=== PATIENT | female | born 1955 | race Caucasian/White ===

== ENCOUNTER 2021-06-05 10:20 | Inpatient (IN) | payer BC ==
[2021-06-05 11:37] LABS: #Eosinphils 0.2 thou/uL (0.0-0.7); #Lymphocytes 0.9 thou/uL (1.20-3.40); #Monocytes 0.5 thou/uL (0.11-0.59); #Neutrophils 5.7 thou/uL (1.40-6.50); %Basophils 0.2 % (0.0-1.0); %Eosinophils 3.4 % (0.0-10.0); %Monocytes 6.3 % (0.0-10.0); %Neutrophils 78.1 % (42.0-75.0); Hemoglobin 10.3 g/dL (12.0-16.0); Mean Corpuscular Hemoglobin 29.8 pg (27.0-31.0); Mean Corpuscular Volume 85.1 fL (78.0-98.0); Mean Platelet Volume 8.4 fL (7.4-10.4); Platelet Count 143 thou/uL (130-400); RBC Distribution Width 13.2 % (11.5-14.5); Red Blood Cell (RBC) Count 3.44 mill/uL (4.20-5.40); White Blood Cell (WBC) Count 7.3 thou/uL (4.8-10.8)
[2021-06-05 11:57] LABS: ALT (SGPT) 15 U/L (8-55); AST (SGOT) 20 U/L (5-34); Albumin 3.6 g/dL (3.4-4.8); Alkaline Phosphatase 61 U/L (40-110); Anion Gap 16 mmol/L (10-20); BUN (Urea Nitrogen) 78 mg/dL (9.8-20.1); Bilirubin, Total 0.4 mg/dL (0.2-1.2); Calc. Creatinine Clearance 0 mL/min (70-130); Calcium 9.6 mg/dL (7.8-10.44); Carbon Dioxide 29 mmol/L (23-31); Chloride 81 mmol/L (98-107); Globulin 2.5 g/dL (2.4-3.5); Glucose 236 mg/dL (80-115); Protein, Total 6.1 g/dL (5.8-8.1); Sodium 123 mmol/L (136-145)
[2021-06-05 12:19] LABS: CKMB 2.8 ng/mL (0-6.6)
[2021-06-05 13:24] LABS: SARS-CoV-2 NAA Rapid Test Not Detected (NotDetected)
[2021-06-05] MEDS ORDERED: Ondansetron PF 4 MG/2 ML Vial ONE (13:56)
[2021-06-05 14:33] LABS: Bacteria/HPF None Seen HPF (None Seen); Bilirubin Negative (Negative); Blood, Urine 1+ (Negative); Clarity Clear (Clear); Glucose, Urine (Dipstick) 200 mg/dL (Negative); Ketone, Urine Negative (Negative); Leukocyte 25 Leu/uL (Negative); Nitrite Negative (Negative); Protein, Urine (Dipstick) 300 mg/dL (Neg-Trace); RBC/HPF 0-3 HPF (0-3); Specific Gravity, Urine 1.012 (1.002-1.036); Squamous Epithelial 0-3 HPF (0-3); Urobilinogen Normal mg/dL (Less than 2); pH, Urine 6.5 (5.0-9.0)
[2021-06-05] MEDS ORDERED: Sodium Chloride 0.9% 1,000 ML IV SCH (15:30)
[2021-06-05 15:38] VITALS: BMI 29.7
[2021-06-05] MEDS ORDERED: FLU VACC QS2021-22(65YR UP)/PF 240 MCG/0.7 ML SYRINGE IM ONE (16:00)
[2021-06-05 17:08] LABS: Magnesium 3.1 mg/dL (1.6-2.6); Phosphorus 6.2 mg/dL (2.3-4.7)
[2021-06-05] MEDS ORDERED: Ondansetron PF 4 MG/2 ML Vial IVP PRN (17:11)
[2021-06-05] MEDS ORDERED: Ondansetron ODT 4 MG TAB PO PRN (17:11)
[2021-06-05] MEDS ORDERED: Acetaminophen 325 MG TAB PO PRN (17:11)
[2021-06-05] MEDS ORDERED: Acetaminophen 650 MG Suppository PR PRN (17:11)
[2021-06-05 17:50] LABS: Sodium 123 mmol/L (136-145)
[2021-06-05] MEDS ORDERED: HumaLOG 300 UNITS/3 ML VIAL SC PRN ×2 (17:57)
[2021-06-05] MEDS ORDERED: Dextrose 50% Abboject 50 ML SYRINGE SLOW IVP PRN (17:57)
[2021-06-05] MEDS ORDERED: Dextrose 5% in Water 1,000 ML IV PRN (17:57)
[2021-06-05 18:00] LABS: Sodium 123 mmol/L (136-145)
[2021-06-05] MEDS ORDERED: Potassium Chloride 20 MEQ TAB PO SCH (18:00)
[2021-06-05 18:19] LABS: Potassium, Urine 38.9 mmol/L
[2021-06-05] MEDS: Sodium Chloride 0.9% 1,000 ML IV SCH (18:28)
[2021-06-05 18:52] LABS: CKMB 2.9 ng/mL (0-6.6)
[2021-06-05] MEDS: Morphine ER 15 MG TAB PO SCH (20:42)
[2021-06-05] MEDS: oxyCODONE 5 MG TAB PO PRN (20:43)
[2021-06-05 21:54] LABS: Sodium 124 mmol/L (136-145)
[2021-06-05 22:07] LABS: CKMB 2.5 ng/mL (0-6.6)
[2021-06-06] MEDS: oxyCODONE 5 MG TAB PO PRN ×4 (00:55→20:39)
[2021-06-06 05:08] LABS: #Eosinphils 0.2 thou/uL (0.0-0.7); #Lymphocytes 1.1 thou/uL (1.20-3.40); #Monocytes 0.5 thou/uL (0.11-0.59); #Neutrophils 3.9 thou/uL (1.40-6.50); %Basophils 0.4 % (0.0-1.0); %Eosinophils 4.1 % (0.0-10.0); %Monocytes 7.9 % (0.0-10.0); %Neutrophils 68.6 % (42.0-75.0); Hemoglobin 10.3 g/dL (12.0-16.0); Mean Corpuscular Volume 85.8 fL (78.0-98.0); Mean Platelet Volume 8.3 fL (7.4-10.4); Platelet Count 136 thou/uL (130-400); RBC Distribution Width 13.2 % (11.5-14.5); Red Blood Cell (RBC) Count 3.42 mill/uL (4.20-5.40); White Blood Cell (WBC) Count 5.7 thou/uL (4.8-10.8)
[2021-06-06 05:35] LABS: Anion Gap 15 mmol/L (10-20); BUN (Urea Nitrogen) 71 mg/dL (9.8-20.1); Calc. Creatinine Clearance 13 mL/min (70-130); Calcium 9.1 mg/dL (7.8-10.44); Carbon Dioxide 26 mmol/L (23-31); Chloride 87 mmol/L (98-107); Glucose 156 mg/dL (80-115); Potassium 3.3 mmol/L (3.5-5.1); Sodium 125 mmol/L (136-145)
[2021-06-06] MEDS ORDERED: Non-Formulary Item 1 EACH (Polyethylene Glycol 3350 [Miralax] 119 GM Bottle) PO PRN (07:58)
[2021-06-06] MEDS ORDERED: Docusate 100 MG CAP PO PRN (07:58)
[2021-06-06] MEDS ORDERED: Polyethylene Glycol 3350 17 GM Packet PO PRN (08:08)
[2021-06-06] MEDS ORDERED: Fluticasone/Umeclidin/Vilanter [Trelegy Ellipta 200-62.5-25] INH SCH (09:00)
[2021-06-06] MEDS ORDERED: Non-Formulary Item 1 EACH (Fluticasone/Umeclidin/Vilanter [Trelegy Ellipta 200-62.5-25] 1 INH SCH (09:00)
[2021-06-06 09:39] LABS: Sodium 128 mmol/L (136-145)
[2021-06-06] MEDS: predniSONE 5 MG TAB PO SCH (11:01)
[2021-06-06] MEDS: Morphine ER 15 MG TAB PO SCH ×2 (11:02→20:40)
[2021-06-06] MEDS: Lantus 1000 UNITS/10 ML VIAL SC SCH (13:22)
[2021-06-06 16:24] LABS: Sodium 124 mmol/L (136-145)
[2021-06-06] MEDS: Sodium Chloride 0.9% 1,000 ML IV SCH ×2 (19:30→23:30)
[2021-06-06] MEDS ORDERED: Sodium Chloride 0.65% Nasal 44 ML BOT EA NARE PRN (19:36)
[2021-06-06] MEDS: Tacrolimus 1 MG CAP PO SCH (20:40)
[2021-06-06] MEDS: Mycophenolate 250 MG CAP PO SCH (20:40)
[2021-06-06] MEDS ORDERED: ALPRAZolam 0.5 MG TAB PO SCH (21:30)
[2021-06-06 22:24] LABS: Sodium 126 mmol/L (136-145)
[2021-06-06] MEDS ORDERED: Amitriptyline HCl 10 MG TAB PO PRN (22:36)
[2021-06-06] MEDS ORDERED: Amitriptyline HCl 25 MG TAB PO PRN (22:38)
[2021-06-07 05:27] LABS: Anion Gap 15 mmol/L (10-20); BUN (Urea Nitrogen) 69 mg/dL (9.8-20.1); Calc. Creatinine Clearance 13 mL/min (70-130); Calcium 8.9 mg/dL (7.8-10.44); Carbon Dioxide 25 mmol/L (23-31); Chloride 89 mmol/L (98-107); Glucose 126 mg/dL (80-115); Potassium 3.1 mmol/L (3.5-5.1); Sodium 126 mmol/L (136-145)
[2021-06-07] MEDS ORDERED: Mometasone 100 MCG/PUFF (1 INHALER) INH SCH (06:30)
[2021-06-07 06:40] LABS: #Eosinphils 0.2 thou/uL (0.0-0.7); #Lymphocytes 1.2 thou/uL (1.20-3.40); #Monocytes 0.6 thou/uL (0.11-0.59); #Neutrophils 3.9 thou/uL (1.40-6.50); %Basophils 0.5 % (0.0-1.0); %Eosinophils 3.6 % (0.0-10.0); %Lymphocytes 20.3 % (21.0-51.0); %Monocytes 10.3 % (0.0-10.0); %Neutrophils 65.3 % (42.0-75.0); Hemoglobin 9.7 g/dL (12.0-16.0); Mean Corpuscular HGB CONC 34.4 g/dL (32.0-36.0); Mean Corpuscular Hemoglobin 29.8 pg (27.0-31.0); Mean Corpuscular Volume 86.6 fL (78.0-98.0); Mean Platelet Volume 8.6 fL (7.4-10.4); Platelet Count 116 thou/uL (130-400); Platelet Morphology Comment Appears Decreased; RBC Distribution Width 13.2 % (11.5-14.5); Red Blood Cell (RBC) Count 3.26 mill/uL (4.20-5.40); White Blood Cell (WBC) Count 5.9 thou/uL (4.8-10.8)
[2021-06-07] MEDS: Morphine ER 15 MG TAB PO SCH (08:29)
[2021-06-07] MEDS: Mycophenolate 250 MG CAP PO SCH (08:30)
[2021-06-07] MEDS: Tacrolimus 1 MG CAP PO SCH (08:30)
[2021-06-07] MEDS: predniSONE 5 MG TAB PO SCH (08:30)
[2021-06-07] MEDS: Lantus 1000 UNITS/10 ML VIAL SC SCH (08:36)
[2021-06-07 08:45] VITALS: BP 139/82; TEMP 97.9
[2021-06-07] MEDS: oxyCODONE 5 MG TAB PO PRN (09:08)
[2021-06-09 21:38] LABS: Tacrolimus 1.8 ng/mL (2.0-20.0)
== END 2021-06-07 11:50 | disposition home or self-care (01) | DRG 699 ==
LOC: ERS 10:20 → T4-B 15:29 → 2SW 19:48
PROVIDERS: ADMIT Hospitalist; ATTEND Family Medicine
DX: T86.19 Other complication of kidney transplant (principal); N17.9 Acute kidney failure, unspecified; Z20.822 Contact with and (suspected) exposure to COVID-19; I13.2 Hypertensive heart and chronic kidney disease with heart failure and with stage 5 chronic kidney disease, or end stage renal disease; E87.1 Hypo-osmolality and hyponatremia; N18.5 Chronic kidney disease, stage 5; C34.90 Malignant neoplasm of unspecified part of unspecified bronchus or lung; Y83.0 Surgical operation with transplant of whole organ as the cause of abnormal reaction of the patient, or of later complication, without mention of misadventure at the time of the procedure; E78.5 Hyperlipidemia, unspecified; E11.22 Type 2 diabetes mellitus with diabetic chronic kidney disease; I50.9 Heart failure, unspecified; E87.6 Hypokalemia; R79.89 Other specified abnormal findings of blood chemistry; I25.10 Atherosclerotic heart disease of native coronary artery without angina pectoris; G89.29 Other chronic pain; J44.9 Chronic obstructive pulmonary disease, unspecified; Z96.651 Presence of right artificial knee joint; D63.1 Anemia in chronic kidney disease; Z90.2 Acquired absence of lung [part of]; Z88.8 Allergy status to other drugs, medicaments and biological substances; Z79.82 Long term (current) use of aspirin; Z79.4 Long term (current) use of insulin; Z79.52 Long term (current) use of systemic steroids; Z79.899 Other long term (current) drug therapy; Z95.5 Presence of coronary angioplasty implant and graft; Z84.1 Family history of disorders of kidney and ureter
CPT/HCPCS: 0240U; 36415; 36416; 76770; 80048; 80053; 80197; 81003; 81015; 82436; 82553; 83735; 83930; 83935; 84100; 84133; 84295; 84300; 84484; 84540; 84560; 85025; 93005; 93306; 96374; J1815; J2405; J7050; J7507; J7512; J7517

== ENCOUNTER 2021-06-10 12:07 | Inpatient (IN) | payer BC ==
[2021-06-10 12:43] LABS: #Lymphocytes 0.4 thou/uL (1.20-3.40); #Monocytes 0.3 thou/uL (0.11-0.59); #Neutrophils 11.6 thou/uL (1.40-6.50); %Eosinophils 0.3 % (0.0-10.0); %Lymphocytes 3.4 % (21.0-51.0); %Monocytes 2.4 % (0.0-10.0); %Neutrophils 93.8 % (42.0-75.0); Hemoglobin 9.9 g/dL (12.0-16.0); Mean Corpuscular HGB CONC 35.3 g/dL (32.0-36.0); Mean Corpuscular Hemoglobin 29.9 pg (27.0-31.0); Mean Corpuscular Volume 84.5 fL (78.0-98.0); Mean Platelet Volume 7.6 fL (7.4-10.4); Platelet Count 160 thou/uL (130-400); RBC Distribution Width 13.4 % (11.5-14.5); White Blood Cell (WBC) Count 12.3 thou/uL (4.8-10.8)
[2021-06-10 12:50] LABS: Hemoglobin A1c 6.5 % (4.0-6.0)
[2021-06-10] MEDS ORDERED: CEFAZOLIN 2 GM, Admixture Fee 1 EACH in Sodium Chloride 0.9% 100 ML IVPB SCH (13:00)
[2021-06-10 13:03] LABS: ALT (SGPT) 14 U/L (8-55); AST (SGOT) 15 U/L (5-34); Albumin 3.8 g/dL (3.4-4.8); Alkaline Phosphatase 57 U/L (40-110); Anion Gap 16 mmol/L (10-20); BUN (Urea Nitrogen) 69 mg/dL (9.8-20.1); Bilirubin, Total 0.5 mg/dL (0.2-1.2); Calc. Creatinine Clearance 0 mL/min (70-130); Calcium 9.3 mg/dL (7.8-10.44); Carbon Dioxide 27 mmol/L (23-31); Chloride 85 mmol/L (98-107); Globulin 2.3 g/dL (2.4-3.5); Glucose 214 mg/dL (80-115); Potassium 3.6 mmol/L (3.5-5.1); Protein, Total 6.1 g/dL (5.8-8.1); Sodium 124 mmol/L (136-145)
[2021-06-10 14:43] LABS: Hep A IgM AB Non-Reactive (NonReactive); Hep A IgM S/CO 0.13 S/CO (0-0.79); Hep C IgG Ab Non-Reactive (NonReactive); Hep C Index 0.07 S/CO (0-0.79)
[2021-06-10 14:45] LABS: HBCM Index 0.05 S/CO (0-0.79); Hepatitis B Core IgM Abs Non-Reactive (NonReactive)
[2021-06-10] MEDS ORDERED: hydrALAZINE 20 MG/ML VIAL SLOW IVP PRN (15:40)
[2021-06-10] MEDS ORDERED: Acetaminophen 325 MG TAB PO PRN (15:40)
[2021-06-10] MEDS ORDERED: Dextrose 5% in Water 1,000 ML IV PRN (15:40)
[2021-06-10] MEDS ORDERED: HumaLOG 300 UNITS/3 ML VIAL SC PRN (15:40)
[2021-06-10] MEDS ORDERED: Dextrose 50% Abboject 50 ML SYRINGE SLOW IVP PRN (15:40)
[2021-06-10] MEDS ORDERED: Tuberculin PPD 0.1 ML VIAL I-DERMAL SCH (15:45)
[2021-06-10 16:01] LABS: HBSAg Index 0.29 S/CO (0-0.99); Hep B Surf Ag NonReactive S/CO (NonReactive)
[2021-06-10 17:09] LABS: HBSAB Concentration Less than 8.00 mIU/mL; HBSAg Index 0.24 S/CO (0-0.99); Hep B Core Total Ab Non-Reactive (NonReactive); Hep B Core Total Index 0.06 S/CO (0-0.79); Hep B Surf AB Non-Reactive (NonReactive); Hep B Surf Ag Non-Reactive S/CO (NonReactive); Hep C IgG Ab Non-Reactive (NonReactive); Hep C Index 0.06 S/CO (0-0.79)
[2021-06-10] MEDS: HumaLOG 300 UNITS/3 ML VIAL SC PRN (17:28)
[2021-06-10] MEDS ORDERED: Amitriptyline HCl 10 MG TAB PO PRN (17:44)
[2021-06-10] MEDS ORDERED: Polyethylene Glycol 3350 17 GM Packet PO PRN (18:14)
[2021-06-10] MEDS: oxyCODONE 5 MG TAB PO PRN (18:34)
[2021-06-10] MEDS ORDERED: Losartan 25 MG TAB PO SCH (21:00)
[2021-06-10] MEDS: Aspirin 81 mg Enteric Coated Tablet PO SCH (21:19)
[2021-06-10] MEDS: Tacrolimus 1 MG CAP PO SCH (21:19)
[2021-06-10] MEDS: ALPRAZolam 0.25 MG TAB PO SCH (21:20)
[2021-06-10] MEDS: Mycophenolate 250 MG CAP PO SCH (21:20)
[2021-06-10] MEDS: Docusate 100 MG CAP PO SCH (21:20)
[2021-06-10] MEDS: Morphine ER 15 MG TAB PO SCH (21:21)
[2021-06-10] MEDS: Heparin 5,000 UNITS/ML VIAL SC SCH (21:21)
[2021-06-11] MEDS: oxyCODONE 5 MG TAB PO PRN ×3 (00:08→18:01)
[2021-06-11 06:01] LABS: #Lymphocytes 0.8 thou/uL (1.20-3.40); #Monocytes 0.4 thou/uL (0.11-0.59); #Neutrophils 4.4 thou/uL (1.40-6.50); %Eosinophils 0.2 % (0.0-10.0); %Lymphocytes 14.9 % (21.0-51.0); %Monocytes 6.6 % (0.0-10.0); %Neutrophils 78.2 % (42.0-75.0); Hemoglobin 8.8 g/dL (12.0-16.0); Mean Corpuscular Hemoglobin 29.2 pg (27.0-31.0); Mean Corpuscular Volume 85.8 fL (78.0-98.0); Mean Platelet Volume 7.7 fL (7.4-10.4); Platelet Count 157 thou/uL (130-400); RBC Distribution Width 13.1 % (11.5-14.5); White Blood Cell (WBC) Count 5.6 thou/uL (4.8-10.8)
[2021-06-11 06:19] LABS: Anion Gap 14 mmol/L (10-20); BUN (Urea Nitrogen) 75 mg/dL (9.8-20.1); Calc. Creatinine Clearance 14 mL/min (70-130); Calcium 8.9 mg/dL (7.8-10.44); Carbon Dioxide 27 mmol/L (23-31); Chloride 85 mmol/L (98-107); Glucose 213 mg/dL (80-115); Magnesium 2.7 mg/dL (1.6-2.6); Phosphorus 5.7 mg/dL (2.3-4.7); Potassium 3.3 mmol/L (3.5-5.1); Sodium 123 mmol/L (136-145)
[2021-06-11 08:06] LABS: SARS-CoV-2 NAA Rapid Test Not Detected (NotDetected)
[2021-06-11] MEDS: Morphine ER 15 MG TAB PO SCH ×2 (09:31→22:55)
[2021-06-11] MEDS: Tacrolimus 1 MG CAP PO SCH ×2 (09:32→21:30)
[2021-06-11] MEDS: Mycophenolate 250 MG CAP PO SCH ×2 (09:32→21:30)
[2021-06-11] MEDS: ALPRAZolam 0.25 MG TAB PO SCH ×2 (09:32→22:56)
[2021-06-11] MEDS: Torsemide 100 MG TAB PO SCH (09:33)
[2021-06-11] MEDS: predniSONE 5 MG TAB PO SCH (09:36)
[2021-06-11] MEDS: Heparin 5,000 UNITS/ML VIAL SC SCH ×2 (09:41→21:30)
[2021-06-11] MEDS: Ezetimibe 10 MG TAB PO SCH (12:34)
[2021-06-11] MEDS ORDERED: Midazolam HCl 2 mg/2 ml Vial ONE (13:46)
[2021-06-11] MEDS ORDERED: Fentanyl 100 MCG/2 ML VIAL ONE ×3 (13:46→17:01)
[2021-06-11] MEDS ORDERED: Heparin 5,000 UNITS/ML VIAL ONE (13:52)
[2021-06-11] MEDS ORDERED: Lidocaine 1% w/Epinephrine 1:100K 20 ML VIAL ONE (13:52)
[2021-06-11] MEDS ORDERED: Protamine Sulfate 50 MG/5 ML VIAL ONE (13:52)
[2021-06-11] MEDS ORDERED: Sodium Chloride 0.9% 20 ML ONE (13:52)
[2021-06-11] MEDS ORDERED: Bupivacaine PF 0.5% 30 ML VIAL ONE (13:52)
[2021-06-11] MEDS ORDERED: Heparin 10,000 UNITS/ 10 ML VIAL ONE (13:52)
[2021-06-11] MEDS ORDERED: ceFAZolin Sodium (SDC) 2 GM/100 ML BAG ONE (14:22)
[2021-06-11] MEDS ORDERED: Phenylephrine 10 MG/ML VIAL ONE (14:46)
[2021-06-11] MEDS ORDERED: PROPOFOL 20 ML ONE (15:31)
[2021-06-11] MEDS ORDERED: Promethazine HCl 25 MG/ML VIAL IVPB PRN (16:40)
[2021-06-11] MEDS ORDERED: PACU-Morphine 4MG/ML VIAL SLOW IVP PRN (16:40)
[2021-06-11] MEDS ORDERED: Ondansetron HCl/PF 4 MG/2 ML Vial IVP PRN (16:40)
[2021-06-11] MEDS ORDERED: Promethazine HCl 25 MG/ML VIAL IM PRN (16:40)
[2021-06-11] MEDS ORDERED: Morphine 4 MG/ML VIAL ONE (17:11)
[2021-06-11] MEDS ORDERED: Ondansetron PF 4 MG/2 ML Vial IVP PRN (18:33)
[2021-06-11] MEDS ORDERED: Ondansetron ODT 4 MG TAB PO PRN (18:34)
[2021-06-11] MEDS: Aspirin 81 mg Enteric Coated Tablet PO SCH (21:30)
[2021-06-11] MEDS: Docusate 100 MG CAP PO SCH (21:30)
[2021-06-12] MEDS: oxyCODONE 5 MG TAB PO PRN ×3 (00:13→17:26)
[2021-06-12] MEDS: HumaLOG 300 UNITS/3 ML VIAL SC PRN (05:20)
[2021-06-12] MEDS: ALPRAZolam 0.25 MG TAB PO SCH (06:16)
[2021-06-12] MEDS: Torsemide 100 MG TAB PO SCH (09:05)
[2021-06-12] MEDS: predniSONE 5 MG TAB PO SCH (09:06)
[2021-06-12] MEDS: Morphine ER 15 MG TAB PO SCH (09:06)
[2021-06-12] MEDS: Tacrolimus 1 MG CAP PO SCH (09:06)
[2021-06-12] MEDS: Heparin 5,000 UNITS/ML VIAL SC SCH (09:07)
[2021-06-12] MEDS: Mycophenolate 250 MG CAP PO SCH (09:07)
[2021-06-12 10:16] LABS: Hemoglobin 8.9 g/dL (12.0-16.0)
[2021-06-12 10:36] LABS: Anion Gap 12 mmol/L (10-20); BUN (Urea Nitrogen) 55 mg/dL (9.8-20.1); Calc. Creatinine Clearance 19 mL/min (70-130); Calcium 8.2 mg/dL (7.8-10.44); Carbon Dioxide 30 mmol/L (23-31); Chloride 92 mmol/L (98-107); Glucose 152 mg/dL (80-115); Potassium 3.3 mmol/L (3.5-5.1); Sodium 131 mmol/L (136-145)
[2021-06-12] MEDS: Ezetimibe 10 MG TAB PO SCH (14:47)
[2021-06-12] MEDS ORDERED: READ PPD TEST SITE PO SCH (15:45)
[2021-06-12 17:30] VITALS: BP 90/67; TEMP 98.6
== END 2021-06-12 18:20 | disposition home or self-care (01) | DRG 673 ==
LOC: ERS 12:07 → T4-B 15:11
PROVIDERS: ADMIT Internal Medicine; ATTEND Hospitalist
PROC: 02HV33Z Insertion of Infusion Device into Superior Vena Cava, Percutaneous Approach (ICD-10-PCS; 2021-06-10)
PROC: 0JH63XZ Insertion of Tunneled Vascular Access Device into Chest Subcutaneous Tissue and Fascia, Percutaneous Approach (ICD-10-PCS; principal; 2021-06-11)
PROC: 031C0ZF Bypass Left Radial Artery to Lower Arm Vein, Open Approach (ICD-10-PCS; 2021-06-11)
PROC: 02HV33Z Insertion of Infusion Device into Superior Vena Cava, Percutaneous Approach (ICD-10-PCS; 2021-06-11)
PROC: B5181ZA Fluoroscopy of Superior Vena Cava using Low Osmolar Contrast, Guidance (ICD-10-PCS; 2021-06-11)
PROC: B548ZZA Ultrasonography of Superior Vena Cava, Guidance (ICD-10-PCS; 2021-06-11)
PROC: 5A1D70Z Performance of Urinary Filtration, Intermittent, Less than 6 Hours Per Day (ICD-10-PCS; 2021-06-11)
DX: T86.11 Kidney transplant rejection (principal); N18.6 End stage renal disease; I13.2 Hypertensive heart and chronic kidney disease with heart failure and with stage 5 chronic kidney disease, or end stage renal disease; E87.1 Hypo-osmolality and hyponatremia; Z20.822 Contact with and (suspected) exposure to COVID-19; Y83.8 Other surgical procedures as the cause of abnormal reaction of the patient, or of later complication, without mention of misadventure at the time of the procedure; I50.9 Heart failure, unspecified; D63.1 Anemia in chronic kidney disease; I25.10 Atherosclerotic heart disease of native coronary artery without angina pectoris; E11.22 Type 2 diabetes mellitus with diabetic chronic kidney disease; I87.8 Other specified disorders of veins; K43.2 Incisional hernia without obstruction or gangrene; E78.00 Pure hypercholesterolemia, unspecified; M19.90 Unspecified osteoarthritis, unspecified site; G89.4 Chronic pain syndrome; K59.00 Constipation, unspecified; Z96.651 Presence of right artificial knee joint; Z88.8 Allergy status to other drugs, medicaments and biological substances; Z79.82 Long term (current) use of aspirin; Z79.4 Long term (current) use of insulin; Z79.899 Other long term (current) drug therapy; Z79.891 Long term (current) use of opiate analgesic; Z79.52 Long term (current) use of systemic steroids; Z85.118 Personal history of other malignant neoplasm of bronchus and lung; Z90.2 Acquired absence of lung [part of]; Z90.710 Acquired absence of both cervix and uterus; Z90.722 Acquired absence of ovaries, bilateral
CPT/HCPCS: 36415; 36416; 36556; 71045; 80048; 80053; 80074; 83036; 83735; 84100; 85014; 85018; 85025; 86580; 86704; 86706; 86803; 87340; 93005; 93970; C1752; C1776; J0690; J1644; J1815; J2250; J2270; J2370; J2704; J2720; J3010; J7507; J7512; J7517; Q0162; S0020; U0002

== ENCOUNTER 2021-06-21 21:47 | Emergency (ER) | payer BC ==
[2021-06-21 23:31] LABS: #Eosinphils 0.2 thou/uL (0.0-0.7); #Lymphocytes 0.8 thou/uL (1.20-3.40); #Monocytes 0.5 thou/uL (0.11-0.59); #Neutrophils 6.3 thou/uL (1.40-6.50); %Basophils 0.3 % (0.0-1.0); %Lymphocytes 10.2 % (21.0-51.0); %Monocytes 5.9 % (0.0-10.0); %Neutrophils 80.7 % (42.0-75.0); Hemoglobin 8.5 g/dL (12.0-16.0); Mean Corpuscular HGB CONC 34.1 g/dL (32.0-36.0); Mean Corpuscular Hemoglobin 30.5 pg (27.0-31.0); Mean Corpuscular Volume 89.5 fL (78.0-98.0); Mean Platelet Volume 7.8 fL (7.4-10.4); Platelet Count 134 thou/uL (130-400); RBC Distribution Width 13.5 % (11.5-14.5); Red Blood Cell (RBC) Count 2.77 mill/uL (4.20-5.40); White Blood Cell (WBC) Count 7.8 thou/uL (4.8-10.8)
[2021-06-21 23:51] LABS: ALT (SGPT) 15 U/L (8-55); AST (SGOT) 23 U/L (5-34); Albumin 3.4 g/dL (3.4-4.8); Alkaline Phosphatase 87 U/L (40-110); Anion Gap 13 mmol/L (10-20); BUN (Urea Nitrogen) 25 mg/dL (9.8-20.1); Bilirubin, Total 0.8 mg/dL (0.2-1.2); Calc. Creatinine Clearance 0 mL/min (70-130); Carbon Dioxide 31 mmol/L (23-31); Chloride 93 mmol/L (98-107); Globulin 2.3 g/dL (2.4-3.5); Glucose 80 mg/dL (80-115); Potassium 4.1 mmol/L (3.5-5.1); Protein, Total 5.7 g/dL (5.8-8.1); Sodium 133 mmol/L (136-145)
[2021-06-22] MEDS ORDERED: Acetaminophen 500 MG TAB ONE (00:23)
[2021-06-22 00:38] LABS: CKMB 1.4 ng/mL (0-6.6)
== END 2021-06-22 05:46 | disposition home or self-care (01) ==
LOC: ERS 21:47
DX: I12.0 Hypertensive chronic kidney disease with stage 5 chronic kidney disease or end stage renal disease (principal); N18.6 End stage renal disease; E87.70 Fluid overload, unspecified; I25.2 Old myocardial infarction; J44.9 Chronic obstructive pulmonary disease, unspecified; Z87.891 Personal history of nicotine dependence; Z79.82 Long term (current) use of aspirin; Z99.2 Dependence on renal dialysis
CPT/HCPCS: 36415; 71045; 80053; 82553; 83880; 84484; 85025; 90935; 93005; G0257